=== PATIENT | male | born 1980 | race Caucasian/White ===

== ENCOUNTER 2022-10-19 11:49 | Emergency (ER) | payer BC ==
[~2022-10-19] VITALS: Ht 172.7 cm; Wt 79.4 kg
[2022-10-19 12:58] VITALS: BP 129/92
[2022-10-19] MEDS ORDERED: HYDR-3980 PO (13:04)
[2022-10-19] MEDS ORDERED: IBUP-1957 PO (13:04)
[2022-10-19] MEDS ORDERED: KETOROLAC TROMETHAMINE INJ 30 MG/ML VIAL ONE (13:07)
--- NOTE | 2022-10-19 13:19 | NUR ---
medicated as ordered. d/c w/ prescription in stable condition.
[2022-10-19] MEDS ORDERED: KETOROLAC TROMETHAMINE INJ 60 MG/2 ML VIAL IM ONE (13:30)
== END 2022-10-19 13:21 | disposition home or self-care (01) ==
LOC: ER 12:07
DX: M54.50 Low back pain, unspecified (principal); G89.29 Other chronic pain
CPT/HCPCS: 99283; 96372; J1885

== ENCOUNTER 2023-10-28 09:47 | Emergency (ER) | payer BC ==
[~2023-10-28] VITALS: Ht 172.7 cm; Wt 77.1 kg
[~2023-10-28 09:47] MED LIST: HYDR-3980 PO; IBUP-1957 PO
[2023-10-28 10:17] VITALS: BP 117/92; TEMP 98.6
[2023-10-28] MEDS ORDERED: IBUP-1955 PO (10:55)
[2023-10-28 11:15] VITALS: O2SAT 99
== END 2023-10-28 11:14 | disposition home or self-care (01) ==
LOC: ER 09:58
DX: M25.572 Pain in left ankle and joints of left foot (principal); G89.4 Chronic pain syndrome; Z87.39 Personal history of other diseases of the musculoskeletal system and connective tissue
CPT/HCPCS: 73610-TC; 73630-TC